=== PATIENT | female | born 1990 | race Caucasian/White ===

== ENCOUNTER 2017-04-13 19:30 | Emergency (ER) | payer MEDICAID ==
[~2017-04-13] VITALS: Ht 144.8 cm; Wt 40.4 kg
[2017-04-13 19:54] VITALS: BP 114/66
== END 2017-04-13 23:51 | disposition left against medical advice (07) ==
LOC: ER 19:42
DX: R51 Headache (principal); M54.2 Cervicalgia; M54.9 Dorsalgia, unspecified; R06.02 Shortness of breath; Z53.21 Procedure and treatment not carried out due to patient leaving prior to being seen by health care provider; V89.2XXA Person injured in unspecified motor-vehicle accident, traffic, initial encounter; Y93.89 Activity, other specified; Y99.8 Other external cause status; Y92.488 Other paved roadways as the place of occurrence of the external cause